=== PATIENT | female | born 1945 | race Caucasian/White ===

== ENCOUNTER 2022-04-08 09:04 | Outpatient (CLI) | payer OTHER, MEDICAID ==
[~2022-04-08] VITALS: Ht 162.6 cm; Wt 109.0 kg
[2022-04-08] VITALS (8 sets, daily range): BP systolic 146–183; BP diastolic 64–76
[~2022-04-08 09:04] MED LIST: ADV50250 IH; ALBU8HFA PO; ALEN70TA15 PO; ATOR20TA PO; BUSP15TA12; DOCU250C96; FERR325C; FLUT16SP10; GABA-532 PO; HYDR-4353 PO; HYDR25TA4 PO; IPRA3AMP31 IH; LISI40TA13 PO; MELO-102 PO; MICONAZOLE 2%; OMEP40CA21 PO; OXYB15TA3 PO; PIOG45TA5 PO; PRAV20TA4 PO; TERB250T89 PO; ZOLP10TA5 PO
[2022-04-08] MEDS ORDERED: regadenoson 0.4mg/5ml syringe IV ONE (09:45)
[2022-04-08] MEDS ORDERED: nitroGLYCERIN 0.4mg SUBLingual tab SL PRN (09:45)
[2022-04-08] MEDS ORDERED: aminophylline 250mg/10ml inj. IV PRN (09:45)
== END 2022-04-08 23:59 | disposition home or self-care (01) ==
LOC: RAD 09:04
PROVIDERS: ATTEND Internal Medicine Cardiovascular Disease
DX: I25.119 Atherosclerotic heart disease of native coronary artery with unspecified angina pectoris (principal)
CPT/HCPCS: 78452; 93017; A9500; J2785